=== PATIENT | male | born 1955 ===

== ENCOUNTER 2022-06-01 07:22 | Day surgery (SDC) | payer OTHER | END 2022-06-01 14:00 | disposition home or self-care (01) | LOC: AMB-ENDOS 07:22 | PROVIDERS: ATTEND Surgery | DX: D12.2 Benign neoplasm of ascending colon (principal); K57.30 Diverticulosis of large intestine without perforation or abscess without bleeding; K64.4 Residual hemorrhoidal skin tags; I10 Essential (primary) hypertension; B20 Human immunodeficiency virus [HIV] disease ==